=== PATIENT | female | born 1965 | race Caucasian/White ===

== ENCOUNTER 2016-11-11 20:05 | Inpatient (IN) | payer MEDICAID ==
[~2016-11-11] VITALS: Ht 160 cm; Wt 55.2 kg
[~2016-11-11 20:05] MED LIST: B12/1TAB PO; IRON15TA3 PO; MULT-208 PO; POTASSIUM OTC PO; SULF1TAB23 PO; VITAMIN C OTC PO
[2016-11-11] MEDS ORDERED: SODIUM CHLORIDE FLUSH 10ML SYR IVF ONE (20:30)
[2016-11-11 20:58] LABS: ASPARTATE AMINO TRANSFERASE 13 U/L (15-37); BLOOD UREA NITROGEN 14 mg/dL (7-18)
[2016-11-11] MEDS ORDERED: SODIUM CHLORIDE 0.9% 1,000ML IVBOLUS ONE (21:00)
[2016-11-11 21:05] LABS: DIFF TOTAL CELLS COUNTED 100 CELL DIFF
[2016-11-11 21:12] LABS: ANISOCYTOSIS 1+; HYPOCHROMIA 3+; MICROCYTOSIS 2+; OVALOCYTES 1+; POIKILOCYTOSIS 1+; POLYCHROMASIA 1+
[2016-11-11 21:13] LABS: LARGE PLATELETS 1+; VERIFY COUNTS? YES
[2016-11-11 22:05] VITALS: BP 101/64
[2016-11-11 22:30] VITALS: BP 100/61
[2016-11-11 22:52] VITALS: BP 106/66
[2016-11-11 23:00] VITALS: BP 106/66
[2016-11-12] VITALS (12 sets, daily range): BP systolic 102–132; BP diastolic 65–83
[2016-11-12] MEDS ORDERED: TRAZODONE 50MG TABLET PO PRN (00:30)
[2016-11-12] MEDS ORDERED: ONDANSETRON ODT 4 MG PO PRN (00:30)
[2016-11-12] MEDS ORDERED: DOCUSATE 100 MG CAPSULE PO PRN (00:30)
[2016-11-12] MEDS: NICOTINE 14MG/24 HR PATCH.TD24 TD SCH (00:30)
[2016-11-12] MEDS ORDERED: NORGESTIMATE-ETHINYL ESTRADIOL TABLET PO ONE (12:00)
[2016-11-13] MEDS: NICOTINE 14MG/24 HR PATCH.TD24 TD SCH (00:30)
[2016-11-13 01:54] VITALS: BP 115/74
[2016-11-13 05:19] LABS: BLOOD UREA NITROGEN 8 mg/dL (7-18)
[2016-11-13 07:09] LABS: ANISOCYTOSIS 2+; MICROCYTOSIS 2+
[2016-11-13 07:10] LABS: OVALOCYTES 1+; POLYCHROMASIA 1+
[2016-11-13 07:11] LABS: HYPOCHROMIA 2+
[2016-11-13 07:22] VITALS: BP 99/61
[2016-11-13] MEDS: NORGESTIMATE-ETHINYL ESTRADIOL TABLET PO SCH (08:45)
[2016-11-13 14:50] VITALS: BP 110/69
[2016-11-13 20:42] VITALS: BP 136/81
[2016-11-14] MEDS: NICOTINE 14MG/24 HR PATCH.TD24 TD SCH (00:30)
[2016-11-14 02:00] VITALS: BP 121/74
[2016-11-14 07:24] VITALS: BP 112/73
[2016-11-14] MEDS: NORGESTIMATE-ETHINYL ESTRADIOL TABLET PO SCH (07:57)
== END 2016-11-14 13:19 | disposition home or self-care (01) | DRG 760 ==
LOC: ED 21:28 → EDIP 21:29 → ED 21:41 → 3NE 23:40
PROVIDERS: ADMIT Internal Medicine; ATTEND Internal Medicine
PROC: 30233N1 Transfusion of Nonautologous Red Blood Cells into Peripheral Vein, Percutaneous Approach (ICD-10-PCS; principal; 2016-11-11)
DX: N93.9 Abnormal uterine and vaginal bleeding, unspecified (principal); F33.9 Major depressive disorder, recurrent, unspecified; D62 Acute posthemorrhagic anemia; F43.10 Post-traumatic stress disorder, unspecified; F41.9 Anxiety disorder, unspecified; Z59.0 Homelessness; F17.210 Nicotine dependence, cigarettes, uncomplicated; D63.8 Anemia in other chronic diseases classified elsewhere; F15.10 Other stimulant abuse, uncomplicated; Z90.49 Acquired absence of other specified parts of digestive tract; Z88.6 Allergy status to analgesic agent; Z88.8 Allergy status to other drugs, medicaments and biological substances; Z98.84 Bariatric surgery status
CPT/HCPCS: 36415; 76830; 80048; 80053; 84439; 84443; 84703; 85014; 85018; 85025; 86850; 86900; 86923; 99285; P9016